=== PATIENT | male | born 1950 | race Caucasian/White ===

== ENCOUNTER 2018-05-07 13:34 | Emergency (ER) | payer OTHER ==
[2018-05-07 17:08] LABS: ADD MAN DIFF? NO
[2018-05-07 17:13] LABS: BASOPHILS % 0.2 % (0.0-2.0); HEMATOCRIT 41.4 % (42.0-52.0); HEMOGLOBIN 13.6 g/dl (14.0-18.0); LYMPHOCYTES # 0.7 10^3/ul (0.8-2.9); MEAN CORPUSCULAR HEMOGLOBIN 28.6 pg (29.0-33.0); MEAN CORPUSCULAR HGB CONC 32.9 g/dl (32.0-37.0); MEAN PLATELET VOLUME 9.8 fl (7.4-10.4); MONOCYTES % 7.3 % (0.0-11.0); NEUTROPHIL # 12.3 10^3/ul (1.6-7.5); NEUTROPHILS % 86.9 % (39.0-77.0); PLATELET COUNT 198 10^3/UL (140-415); RED BLOOD COUNT 4.76 10^6/ul (4.70-6.10); RED CELL DISTRIBUTION WIDTH 13.3 % (11.5-14.5)
[2018-05-07 17:13] LABS: WHITE BLOOD COUNT 14.1 10^3/ul (4.8-10.8)
[2018-05-07 17:28] LABS: ALANINE AMINOTRANSFERASE 41 IU/L (13-69); ALBUMIN 4.5 g/dl (3.3-4.9); ALBUMIN/GLOBULIN RATIO 1.21; ALKALINE PHOSPHATASE 101 IU/L (42-121); ANION GAP 15 (5-13); ASPARTATE AMINO TRANSFERASE 42 IU/L (15-46); BILIRUBIN,INDIRECT 1.2 mg/dl (0-1.1); BILIRUBIN,TOTAL 1.2 mg/dl (0.2-1.3); BLOOD UREA NITROGEN 23 mg/dl (7-20); CALCIUM 9.7 mg/dl (8.4-10.2); CARBON DIOXIDE 24 mmol/L (21-31); CHLORIDE 101 mmol/L (97-110); CREATININE 1.27 mg/dl (0.61-1.24); Estimated GFR 56 mL/min (>60); GLUCOSE 134 mg/dl (70-220); LIPASE 46 U/L (23-300); POTASSIUM 4.1 mmol/L (3.5-5.1); SODIUM 140 mmol/L (135-144); TOTAL PROTEIN 8.2 g/dl (6.1-8.1)
[2018-05-07 17:47] LABS: URINE PH (Dip) POC 5.5 (5.0-8.5)
[2018-05-07 17:47] LABS: URINE BLOOD (Dip) POC Trace-intact (NEGATIVE); URINE GLUCOSE (Dip) POC Negative (NEGATIVE); URINE KETONES (Dip) POC Trace (NEGATIVE); URINE LEUKOCYTE EST (Dip) POC Negative (NEGATIVE); URINE NITRITE (Dip) POC Negative (NEGATIVE); URINE TOTAL PROTEIN POC 2+ (NEGATIVE)
[2018-05-07] MEDS: SOD CHLORIDE 0.9% 500 ML IV (18:04)
== END 2018-05-07 18:37 | disposition home or self-care (01) ==
LOC: E/R 13:34
DX: M25.561 Pain in right knee (principal); M25.562 Pain in left knee; E86.0 Dehydration; D72.829 Elevated white blood cell count, unspecified; N18.9 Chronic kidney disease, unspecified; D64.9 Anemia, unspecified
CPT/HCPCS: 36415; 71045; 73562; 80053; 81003; 83690; 85025; 99284-25

== ENCOUNTER 2018-12-05 11:41 | Inpatient (IN) | payer OTHER ==
[2018-12-05 12:50] LABS: ADD MAN DIFF? NO
[2018-12-05 12:57] LABS: WHITE BLOOD COUNT 13.1 10^3/ul (4.8-10.8)
[2018-12-05 12:57] LABS: ABNORMAL IP MESSAGE 1; BASOPHIL # 0.1 10^3/ul (0.0-0.1); BASOPHILS % 0.6 % (0.0-2.0); HEMATOCRIT 38.4 % (42.0-52.0); HEMOGLOBIN 12.9 g/dl (14.0-18.0); LYMPHOCYTES # 1.5 10^3/ul (0.8-2.9); LYMPHOCYTES % 11.4 % (15.0-51.0); MEAN CORPUSCULAR HEMOGLOBIN 28.5 pg (29.0-33.0); MEAN CORPUSCULAR HGB CONC 33.6 g/dl (32.0-37.0); MEAN CORPUSCULAR VOLUME 84.8 fl (82.0-101.0); MEAN PLATELET VOLUME 9.9 fl (7.4-10.4); MONOCYTE # 1.7 10^3/ul (0.3-0.9); MONOCYTES % 13.2 % (0.0-11.0); NEUTROPHIL # 9.8 10^3/ul (1.6-7.5); NEUTROPHILS % 74.3 % (39.0-77.0); PLATELET COUNT 263 10^3/UL (140-415); POSITIVE DIFF @See below; RED BLOOD COUNT 4.53 10^6/ul (4.70-6.10); RED CELL DISTRIBUTION WIDTH 12.7 % (11.5-14.5)
[2018-12-05] MEDS: SODIUM CHLORIDE 0.9% 1L BAG IV* (13:02)
[2018-12-05] MEDS: CEFTRIAXONE 1 GM/50 ML (PMX) 50 ML IVPB (13:03)
[2018-12-05] MEDS: IBUPROFEN 600 MG TAB PO (13:10)
[2018-12-05 13:13] LABS: LACTIC ACID 2.9 mmol/L (0.5-2.0)
[2018-12-05 13:16] LABS: ALANINE AMINOTRANSFERASE 25 IU/L (13-69); ALBUMIN 4.4 g/dl (3.3-4.9); ALBUMIN/GLOBULIN RATIO 1.25; ALKALINE PHOSPHATASE 92 IU/L (42-121); ANION GAP 16 (5-13); ASPARTATE AMINO TRANSFERASE 49 IU/L (15-46); BILIRUBIN,INDIRECT 2.2 mg/dl (0-1.1); BILIRUBIN,TOTAL 2.2 mg/dl (0.2-1.3); BLOOD UREA NITROGEN 14 mg/dl (7-20); CALCIUM 9.4 mg/dl (8.4-10.2); CARBON DIOXIDE 23 mmol/L (21-31); CHLORIDE 96 mmol/L (97-110); CREATININE 1.23 mg/dl (0.61-1.24); Estimated GFR 59 mL/min (>60); GLUCOSE 128 mg/dl (70-220); INR 1.12; LIPASE 54 U/L (23-300); POTASSIUM 3.9 mmol/L (3.5-5.1); PROTIME 14.5 Sec (11.9-14.9); PT RATIO 1.1; SODIUM 135 mmol/L (135-144); TOTAL PROTEIN 7.9 g/dl (6.1-8.1)
[2018-12-05 13:17] LABS: PARTIAL THROMBOPLASTIN TIME 41.7 Sec (23.0-35.0)
[2018-12-05] MEDS: ONDANSETRON 4 MG INJ IV (13:18)
[2018-12-05 13:25] LABS: TROPONIN-I < 0.012 ng/ml (0.000-0.120)
[2018-12-05 13:52] LABS: ADD UMIC YES; UR ASCORBIC ACID NEGATIVE (NEGATIVE); UR BILIRUBIN (Dip) 1+ mg/dL (NEGATIVE); UR BLOOD (Dip) 1+ mg/dL (NEGATIVE); UR CLARITY SLIGHTLY CLOUDY (CLEAR); UR COLOR AMBER (YELLOW); UR GLUCOSE (Dip) NEGATIVE (NEGATIVE); UR KETONES (Dip) 1+ mg/dL (NEGATIVE); UR LEUKOCYTE ESTERASE (Dip) NEGATIVE Leu/ul (NEGATIVE); UR MUCUS MANY /HPF (NONE SEEN); UR NITRITE (Dip) NEGATIVE (NEGATIVE); UR RBC 3 /HPF (0-5); UR SPECIFIC GRAVITY (Dip) 1.021 (1.003-1.030); UR TOTAL PROTEIN (Dip) 1+ mg/dl (NEGATIVE); UR UROBILINOGEN (Dip) 2+ mg/dL (NEGATIVE); UR WBC 2 /HPF (0-5)
[2018-12-05 15:48] LABS: LACTIC ACID 1.1 mmol/L (0.5-2.0)
[2018-12-05] MEDS ORDERED: DOCUSATE SODIUM 100 MG CAP PO (16:00)
[2018-12-05] MEDS ORDERED: ONDANSETRON 4 MG INJ IV (16:00)
[2018-12-05] MEDS ORDERED: VANCOMYCIN IV PER PHARMACY XX (16:00)
[2018-12-05] MEDS ORDERED: MAGNESIUM HYDROXIDE 30ML CUP PO (16:00)
[2018-12-05] MEDS ORDERED: NACL 0.9% 3 ML SYG IV (16:00)
[2018-12-05] MEDS ORDERED: BISACODYL 10 MG SUPP PR (16:00)
[2018-12-05] MEDS: VANCOMYCIN HCL 1.25 GM in SOD CHLORIDE 0.9% 250 ML IVPB (16:34)
[2018-12-05] MEDS: ENOXAPARIN 40 MG/0.4 ML SYG SC (16:43)
[2018-12-05] MEDS: SOD CHLORIDE 0.9% 1,000 ML IV (16:43)
[2018-12-05] MEDS: CEFEPIME 1GM/50 ML (PMX) 50 ML IVPB ×2 (18:14→22:43)
[2018-12-05 21:22] LABS: LACTIC ACID 1.2 mmol/L (0.5-2.0)
[2018-12-05] MEDS: FAMOTIDINE 20 MG INJ IV (22:42)
[2018-12-06] MEDS: SOD CHLORIDE 0.9% 1,000 ML IV ×3 (05:30→17:14)
[2018-12-06] MEDS: VANCOMYCIN 750 MG (PMX) 250 ML IVPB ×2 (05:31→17:53)
[2018-12-06 06:43] LABS: ADD MAN DIFF? NO
[2018-12-06 06:46] LABS: WHITE BLOOD COUNT 9.4 10^3/ul (4.8-10.8)
[2018-12-06 06:46] LABS: BASOPHILS % 0.4 % (0.0-2.0); EOSINOPHILS % 0.2 % (0.0-7.0); HEMATOCRIT 37.3 % (42.0-52.0); HEMOGLOBIN 12.5 g/dl (14.0-18.0); LYMPHOCYTES # 0.6 10^3/ul (0.8-2.9); LYMPHOCYTES % 6.7 % (15.0-51.0); MEAN CORPUSCULAR HEMOGLOBIN 28.9 pg (29.0-33.0); MEAN CORPUSCULAR HGB CONC 33.5 g/dl (32.0-37.0); MEAN CORPUSCULAR VOLUME 86.1 fl (82.0-101.0); MEAN PLATELET VOLUME 10.1 fl (7.4-10.4); MONOCYTE # 0.9 10^3/ul (0.3-0.9); MONOCYTES % 9.4 % (0.0-11.0); NEUTROPHIL # 7.8 10^3/ul (1.6-7.5); NEUTROPHILS % 82.8 % (39.0-77.0); PLATELET COUNT 181 10^3/UL (140-415); RED BLOOD COUNT 4.33 10^6/ul (4.70-6.10); RED CELL DISTRIBUTION WIDTH 12.5 % (11.5-14.5)
[2018-12-06 07:13] LABS: URIC ACID 5.6 mg/dl (3.1-7.9)
[2018-12-06 07:19] LABS: ALANINE AMINOTRANSFERASE 19 IU/L (13-69); ALBUMIN 3.9 g/dl (3.3-4.9); ALBUMIN/GLOBULIN RATIO 1.18; ALKALINE PHOSPHATASE 84 IU/L (42-121); ANION GAP 11 (5-13); ASPARTATE AMINO TRANSFERASE 27 IU/L (15-46); BILIRUBIN,INDIRECT 1.2 mg/dl (0-1.1); BILIRUBIN,TOTAL 1.2 mg/dl (0.2-1.3); BLOOD UREA NITROGEN 10 mg/dl (7-20); CALCIUM 8.9 mg/dl (8.4-10.2); CARBON DIOXIDE 21 mmol/L (21-31); CHLORIDE 109 mmol/L (97-110); CREATININE 0.81 mg/dl (0.61-1.24); Estimated GFR > 60 mL/min (>60); GLUCOSE 95 mg/dl (70-220); MAGNESIUM 2.1 mg/dl (1.7-2.5); PHOSPHORUS 3.4 mg/dl (2.5-4.9); POTASSIUM 4.3 mmol/L (3.5-5.1); SODIUM 141 mmol/L (135-144); TOTAL PROTEIN 7.2 g/dl (6.1-8.1)
[2018-12-06] MEDS: CEFEPIME 1GM/50 ML (PMX) 50 ML IVPB ×2 (08:41→20:29)
[2018-12-06] MEDS: FAMOTIDINE 20 MG INJ IV ×2 (08:41→20:29)
[2018-12-06] MEDS: ENOXAPARIN 40 MG/0.4 ML SYG SC (08:41)
[2018-12-06] MEDS: ACETAMINOPHEN 325 MG TAB PO (20:32)
[2018-12-07 05:44] LABS: ADD MAN DIFF? NO
[2018-12-07 05:47] LABS: BASOPHIL # 0.1 10^3/ul (0.0-0.1); BASOPHILS % 0.5 % (0.0-2.0); EOSINOPHILS % 0.3 % (0.0-7.0); HEMATOCRIT 34.5 % (42.0-52.0); HEMOGLOBIN 11.6 g/dl (14.0-18.0); LYMPHOCYTES # 0.9 10^3/ul (0.8-2.9); LYMPHOCYTES % 9.1 % (15.0-51.0); MEAN CORPUSCULAR HEMOGLOBIN 28.8 pg (29.0-33.0); MEAN CORPUSCULAR HGB CONC 33.6 g/dl (32.0-37.0); MEAN CORPUSCULAR VOLUME 85.6 fl (82.0-101.0); MEAN PLATELET VOLUME 10.5 fl (7.4-10.4); MONOCYTES % 10.2 % (0.0-11.0); NEUTROPHIL # 8.1 10^3/ul (1.6-7.5); NEUTROPHILS % 79.6 % (39.0-77.0); PLATELET COUNT 202 10^3/UL (140-415); RED BLOOD COUNT 4.03 10^6/ul (4.70-6.10); RED CELL DISTRIBUTION WIDTH 12.4 % (11.5-14.5)
[2018-12-07 05:47] LABS: WHITE BLOOD COUNT 10.2 10^3/ul (4.8-10.8)
[2018-12-07 06:12] LABS: ANION GAP 11 (5-13); BLOOD UREA NITROGEN 10 mg/dl (7-20); CALCIUM 8.7 mg/dl (8.4-10.2); CARBON DIOXIDE 22 mmol/L (21-31); CHLORIDE 103 mmol/L (97-110); CREATININE 0.72 mg/dl (0.61-1.24); Estimated GFR > 60 mL/min (>60); GLUCOSE 92 mg/dl (70-220); POTASSIUM 3.8 mmol/L (3.5-5.1); SODIUM 136 mmol/L (135-144)
[2018-12-07 06:40] LABS: VANCOMYCIN,TROUGH 6.3 ug/ml (10.0-20.0)
[2018-12-07] MEDS: VANCOMYCIN 750 MG (PMX) 250 ML IVPB ×3 (06:45→22:09)
[2018-12-07 07:28] LABS: PHOSPHORUS 3.3 mg/dl (2.5-4.9)
[2018-12-07 07:28] LABS: MAGNESIUM 2.2 mg/dl (1.7-2.5)
[2018-12-07] MEDS: FAMOTIDINE 20 MG INJ IV (08:36)
[2018-12-07] MEDS: ENOXAPARIN 40 MG/0.4 ML SYG SC (08:41)
[2018-12-07] MEDS: ACETAMINOPHEN 325 MG TAB PO ×2 (08:45→20:26)
[2018-12-07] MEDS: CEFEPIME 1GM/50 ML (PMX) 50 ML IVPB ×2 (09:04→20:20)
[2018-12-07] MEDS: KETOROLAC 15 MG INJ IV (10:59)
[2018-12-07] MEDS: CLOTRIMAZOLE 1% 30 ML TOPICAL SOLN TOP ×2 (13:00→20:20)
[2018-12-07] MEDS: BISACODYL (EC) 5 MG TAB PO (14:36)
[2018-12-07 19:30] LABS: RHEUMATOID FACTOR NEGATIVE (NEGATIVE)
[2018-12-07] MEDS ORDERED: DIPHENHYDRAMINE 50 MG INJ IV (19:30)
[2018-12-07] MEDS: FAMOTIDINE 20 MG TAB PO (20:23)
[2018-12-08 05:18] LABS: ADD MAN DIFF? NO; HAAIG REFLEX REFLEX FILED
[2018-12-08 05:20] LABS: BASOPHIL # 0.1 10^3/ul (0.0-0.1); BASOPHILS % 0.7 % (0.0-2.0); EOSINOPHILS # 0.1 10^3/ul (0.0-0.5); HEMATOCRIT 31.2 % (42.0-52.0); HEMOGLOBIN 10.5 g/dl (14.0-18.0); LYMPHOCYTES # 1.2 10^3/ul (0.8-2.9); LYMPHOCYTES % 16.8 % (15.0-51.0); MEAN CORPUSCULAR HEMOGLOBIN 28.6 pg (29.0-33.0); MEAN CORPUSCULAR HGB CONC 33.7 g/dl (32.0-37.0); MEAN PLATELET VOLUME 10.2 fl (7.4-10.4); MONOCYTE # 0.6 10^3/ul (0.3-0.9); MONOCYTES % 9.1 % (0.0-11.0); NEUTROPHILS % 71.1 % (39.0-77.0); PLATELET COUNT 247 10^3/UL (140-415); RED BLOOD COUNT 3.67 10^6/ul (4.70-6.10); RED CELL DISTRIBUTION WIDTH 12.4 % (11.5-14.5)
[2018-12-08] MEDS: SOD CHLORIDE 0.9% 1,000 ML IV (05:44)
[2018-12-08] MEDS: VANCOMYCIN 750 MG (PMX) 250 ML IVPB ×3 (05:44→22:21)
[2018-12-08 06:22] LABS: ALPHA FETOPROTEIN 1.73 IU/L (0.00-7.21)
[2018-12-08 06:30] LABS: IRON 18 ug/dl (35-150)
[2018-12-08 06:33] LABS: PROCALCITONIN 1.71 ng/mL (0.00-0.10)
[2018-12-08 06:34] LABS: ALANINE AMINOTRANSFERASE 19 IU/L (13-69); ALBUMIN/GLOBULIN RATIO 1.03; ALKALINE PHOSPHATASE 140 IU/L (42-121); AMYLASE 50 U/L (11-123); ANION GAP 7 (5-13); ASPARTATE AMINO TRANSFERASE 25 IU/L (15-46); BILIRUBIN,INDIRECT 0.6 mg/dl (0-1.1); BILIRUBIN,TOTAL 0.6 mg/dl (0.2-1.3); BLOOD UREA NITROGEN 14 mg/dl (7-20); CALCIUM 8.8 mg/dl (8.4-10.2); CARBON DIOXIDE 24 mmol/L (21-31); CHLORIDE 109 mmol/L (97-110); CREATININE 0.75 mg/dl (0.61-1.24); Estimated GFR > 60 mL/min (>60); GLUCOSE 93 mg/dl (70-220); POTASSIUM 3.9 mmol/L (3.5-5.1); SODIUM 140 mmol/L (135-144); TOTAL PROTEIN 5.9 g/dl (6.1-8.1)
[2018-12-08 06:41] LABS: % IRON SATURATION 10 % SAT (22-52); TOTAL IRON BINDING CAPACITY 180 ug/dl (241-421)
[2018-12-08 07:06] LABS: HEPATITIS B SURFACE ANTIGEN NEGATIVE (NEGATIVE)
[2018-12-08 07:24] LABS: HEPATITIS B CORE ANTIBODY NEGATIVE (NEGATIVE); HEPATITIS C VIRAL ANTIBODY NEGATIVE (NEGATIVE)
[2018-12-08 07:30] LABS: ERYTHROCYTE SEDIMENTATION RATE 118 mm/Hr (0-20)
[2018-12-08] MEDS: FAMOTIDINE 20 MG TAB PO ×2 (08:33→20:20)
[2018-12-08] MEDS: CEFEPIME 1GM/50 ML (PMX) 50 ML IVPB ×2 (08:33→20:21)
[2018-12-08] MEDS: ENOXAPARIN 40 MG/0.4 ML SYG SC (08:40)
[2018-12-08] MEDS: CLOTRIMAZOLE 1% 30 ML TOPICAL SOLN TOP ×2 (09:00→20:20)
[2018-12-08 09:41] LABS: PROSTATE SPECIFIC ANTIGEN < 0.1 ng/ml (0.0-4.0)
[2018-12-08 10:16] LABS: C-REACTIVE PROTEIN 24.2 mg/dl (0.0-0.9)
[2018-12-08 10:29] LABS: CANCER ANTIGEN 125 5.8 U/ml (0.0-35.0)
[2018-12-08 10:33] LABS: CANCER ANTIGEN 19-9 3.8 U/ml (0.0-37.0)
[2018-12-08 13:31] LABS: VANCOMYCIN,TROUGH 13.7 ug/ml (10.0-20.0)
[2018-12-08] MEDS: SOD FERRIC GLUC COMPLX 125 MG in SOD CHLORIDE 0.9% 100 ML IVPB (14:57)
[2018-12-08 19:15] LABS: HIV 1&2 ANTIBODY NEGATIVE (NEGATIVE)
[2018-12-08] MEDS: ACETAMINOPHEN 325 MG TAB PO (20:21)
[2018-12-09] MEDS: VANCOMYCIN 750 MG (PMX) 250 ML IVPB ×3 (05:33→21:12)
[2018-12-09 05:50] LABS: ADD MAN DIFF? NO
[2018-12-09 06:00] LABS: BASOPHILS % 0.7 % (0.0-2.0); EOSINOPHILS # 0.3 10^3/ul (0.0-0.5); EOSINOPHILS % 4.5 % (0.0-7.0); HEMATOCRIT 30.3 % (42.0-52.0); HEMOGLOBIN 10.3 g/dl (14.0-18.0); LYMPHOCYTES # 1.1 10^3/ul (0.8-2.9); LYMPHOCYTES % 20.5 % (15.0-51.0); MEAN CORPUSCULAR HEMOGLOBIN 28.5 pg (29.0-33.0); MEAN CORPUSCULAR VOLUME 83.9 fl (82.0-101.0); MONOCYTE # 0.5 10^3/ul (0.3-0.9); MONOCYTES % 9.5 % (0.0-11.0); NEUTROPHIL # 3.6 10^3/ul (1.6-7.5); NEUTROPHILS % 64.4 % (39.0-77.0); PLATELET COUNT 269 10^3/UL (140-415); RED BLOOD COUNT 3.61 10^6/ul (4.70-6.10); RED CELL DISTRIBUTION WIDTH 12.2 % (11.5-14.5)
[2018-12-09 06:00] LABS: WHITE BLOOD COUNT 5.6 10^3/ul (4.8-10.8)
[2018-12-09 06:31] LABS: ALANINE AMINOTRANSFERASE 29 IU/L (13-69); ALBUMIN 3.2 g/dl (3.3-4.9); ALKALINE PHOSPHATASE 172 IU/L (42-121); ASPARTATE AMINO TRANSFERASE 37 IU/L (15-46); BILIRUBIN,INDIRECT 0.5 mg/dl (0-1.1); BILIRUBIN,TOTAL 0.5 mg/dl (0.2-1.3); TOTAL PROTEIN 6.5 g/dl (6.1-8.1)
[2018-12-09 06:46] LABS: LIPASE 149 U/L (23-300)
[2018-12-09 06:48] LABS: ANION GAP 8 (5-13); BLOOD UREA NITROGEN 7 mg/dl (7-20); CALCIUM 8.5 mg/dl (8.4-10.2); CARBON DIOXIDE 25 mmol/L (21-31); CHLORIDE 105 mmol/L (97-110); CREATININE 0.61 mg/dl (0.61-1.24); Estimated GFR > 60 mL/min (>60); GLUCOSE 91 mg/dl (70-220); POTASSIUM 3.4 mmol/L (3.5-5.1); SODIUM 138 mmol/L (135-144)
[2018-12-09] MEDS: CEFEPIME 1GM/50 ML (PMX) 50 ML IVPB ×2 (08:58→20:25)
[2018-12-09] MEDS: CLOTRIMAZOLE 1% 30 ML TOPICAL SOLN TOP ×2 (08:59→20:32)
[2018-12-09] MEDS: FAMOTIDINE 20 MG TAB PO ×2 (08:59→20:26)
[2018-12-09] MEDS: ENOXAPARIN 40 MG/0.4 ML SYG SC (09:00)
[2018-12-09] MEDS: POTASSIUM CHLORIDE 20 MEQ POWDER FOR ORAL SOLN PO (13:29)
[2018-12-09] MEDS: SOD FERRIC GLUC COMPLX 125 MG in SOD CHLORIDE 0.9% 100 ML IVPB (13:31)
[2018-12-09] MEDS: ACETAMINOPHEN 325 MG TAB PO (20:26)
[2018-12-10] MEDS: VANCOMYCIN 750 MG (PMX) 250 ML IVPB ×3 (06:02→21:57)
[2018-12-10 06:06] LABS: ADD MAN DIFF? NO
[2018-12-10 06:11] LABS: WHITE BLOOD COUNT 7.1 10^3/ul (4.8-10.8)
[2018-12-10 06:11] LABS: BASOPHIL # 0.1 10^3/ul (0.0-0.1); BASOPHILS % 1.1 % (0.0-2.0); EOSINOPHILS # 0.3 10^3/ul (0.0-0.5); EOSINOPHILS % 3.7 % (0.0-7.0); HEMOGLOBIN 11.2 g/dl (14.0-18.0); LYMPHOCYTES # 1.4 10^3/ul (0.8-2.9); LYMPHOCYTES % 20.1 % (15.0-51.0); MEAN CORPUSCULAR HGB CONC 33.9 g/dl (32.0-37.0); MEAN CORPUSCULAR VOLUME 85.5 fl (82.0-101.0); MEAN PLATELET VOLUME 9.7 fl (7.4-10.4); MONOCYTE # 0.7 10^3/ul (0.3-0.9); MONOCYTES % 10.2 % (0.0-11.0); NEUTROPHIL # 4.6 10^3/ul (1.6-7.5); NEUTROPHILS % 64.3 % (39.0-77.0); PLATELET COUNT 327 10^3/UL (140-415); RED BLOOD COUNT 3.86 10^6/ul (4.70-6.10); RED CELL DISTRIBUTION WIDTH 12.1 % (11.5-14.5)
[2018-12-10 06:43] LABS: ANION GAP 10 (5-13); BLOOD UREA NITROGEN 8 mg/dl (7-20); CALCIUM 9.1 mg/dl (8.4-10.2); CARBON DIOXIDE 27 mmol/L (21-31); CHLORIDE 98 mmol/L (97-110); CREATININE 0.65 mg/dl (0.61-1.24); Estimated GFR > 60 mL/min (>60); GLUCOSE 98 mg/dl (70-220); SODIUM 135 mmol/L (135-144)
[2018-12-10] MEDS: CEFEPIME 1GM/50 ML (PMX) 50 ML IVPB ×2 (09:09→20:34)
[2018-12-10] MEDS: FAMOTIDINE 20 MG TAB PO ×2 (09:09→20:33)
[2018-12-10] MEDS: CLOTRIMAZOLE 1% 30 ML TOPICAL SOLN TOP ×2 (09:09→20:34)
[2018-12-10] MEDS: ENOXAPARIN 40 MG/0.4 ML SYG SC (09:12)
[2018-12-10] MEDS: IBUPROFEN 600 MG TAB PO (11:34)
[2018-12-10] MEDS: SOD FERRIC GLUC COMPLX 125 MG in SOD CHLORIDE 0.9% 100 ML IVPB (12:40)
[2018-12-10 14:27] LABS: ANA SCREEN NEGATIVE (NEGATIVE)
[2018-12-11] MEDS: IBUPROFEN 600 MG TAB PO ×2 (03:48→16:36)
[2018-12-11 05:54] LABS: ADD MAN DIFF? NO
[2018-12-11 05:56] LABS: WHITE BLOOD COUNT 6.4 10^3/ul (4.8-10.8)
[2018-12-11 05:56] LABS: BASOPHIL # 0.1 10^3/ul (0.0-0.1); BASOPHILS % 0.9 % (0.0-2.0); EOSINOPHILS # 0.3 10^3/ul (0.0-0.5); EOSINOPHILS % 4.7 % (0.0-7.0); HEMATOCRIT 29.1 % (42.0-52.0); HEMOGLOBIN 10.1 g/dl (14.0-18.0); LYMPHOCYTES % 15.8 % (15.0-51.0); MEAN CORPUSCULAR HGB CONC 34.7 g/dl (32.0-37.0); MEAN CORPUSCULAR VOLUME 83.6 fl (82.0-101.0); MEAN PLATELET VOLUME 9.7 fl (7.4-10.4); MONOCYTE # 0.8 10^3/ul (0.3-0.9); MONOCYTES % 12.1 % (0.0-11.0); NEUTROPHIL # 4.2 10^3/ul (1.6-7.5); NEUTROPHILS % 65.7 % (39.0-77.0); PLATELET COUNT 307 10^3/UL (140-415); RED BLOOD COUNT 3.48 10^6/ul (4.70-6.10); RED CELL DISTRIBUTION WIDTH 12.1 % (11.5-14.5)
[2018-12-11 06:20] LABS: ANION GAP 9 (5-13); BLOOD UREA NITROGEN 10 mg/dl (7-20); CALCIUM 8.8 mg/dl (8.4-10.2); CARBON DIOXIDE 26 mmol/L (21-31); CHLORIDE 98 mmol/L (97-110); CREATININE 0.65 mg/dl (0.61-1.24); Estimated GFR > 60 mL/min (>60); GLUCOSE 89 mg/dl (70-220); POTASSIUM 3.7 mmol/L (3.5-5.1); SODIUM 133 mmol/L (135-144)
[2018-12-11 06:26] LABS: URIC ACID 3.1 mg/dl (3.1-7.9)
[2018-12-11 06:28] LABS: PHOSPHORUS 3.9 mg/dl (2.5-4.9)
[2018-12-11 06:28] LABS: MAGNESIUM 1.9 mg/dl (1.7-2.5)
[2018-12-11 06:32] LABS: VANCOMYCIN,TROUGH 15.6 ug/ml (10.0-20.0)
[2018-12-11 06:45] LABS: C-REACTIVE PROTEIN 20.3 mg/dl (0.0-0.9)
[2018-12-11] MEDS: VANCOMYCIN 750 MG (PMX) 250 ML IVPB (06:50)
[2018-12-11 08:02] LABS: ERYTHROCYTE SEDIMENTATION RATE 108 mm/Hr (0-20)
[2018-12-11] MEDS: ENOXAPARIN 40 MG/0.4 ML SYG SC (08:57)
[2018-12-11] MEDS: FAMOTIDINE 20 MG TAB PO ×2 (08:58→21:15)
[2018-12-11] MEDS: CLOTRIMAZOLE 1% 30 ML TOPICAL SOLN TOP ×2 (08:59→21:15)
[2018-12-11] MEDS: CEFEPIME 1GM/50 ML (PMX) 50 ML IVPB (08:59)
[2018-12-11 12:07] LABS: CYTOMEGALOVIRUS ANTIBODY (IGM) <30.00 AU/mL
[2018-12-11] MEDS: SOD FERRIC GLUC COMPLX 125 MG in SOD CHLORIDE 0.9% 100 ML IVPB (13:00)
[2018-12-11] MEDS: VANCOMYCIN 500 MG (PMX) 100 ML IVPB (14:08)
[2018-12-11 19:11] LABS: EBV VIRAL CAPSID AG AB (IGM) <36.00 U/mL
[2018-12-11 21:36] LABS: CANCER ANTIGEN 15-3 2 U/mL (<32)
[2018-12-12] MEDS: IBUPROFEN 600 MG TAB PO ×3 (02:47→21:12)
[2018-12-12 04:36] LABS: PROTEIN, TOTAL 5.8 g/dL (6.1-8.1)
[2018-12-12 05:47] LABS: ADD MAN DIFF? NO
[2018-12-12 05:53] LABS: BASOPHIL # 0.1 10^3/ul (0.0-0.1); BASOPHILS % 1.3 % (0.0-2.0); EOSINOPHILS # 0.2 10^3/ul (0.0-0.5); EOSINOPHILS % 3.9 % (0.0-7.0); HEMOGLOBIN 9.9 g/dl (14.0-18.0); LYMPHOCYTES # 1.3 10^3/ul (0.8-2.9); LYMPHOCYTES % 21.1 % (15.0-51.0); MEAN CORPUSCULAR HEMOGLOBIN 28.5 pg (29.0-33.0); MEAN CORPUSCULAR HGB CONC 34.1 g/dl (32.0-37.0); MEAN CORPUSCULAR VOLUME 83.6 fl (82.0-101.0); MEAN PLATELET VOLUME 9.5 fl (7.4-10.4); MONOCYTE # 0.7 10^3/ul (0.3-0.9); NEUTROPHIL # 3.8 10^3/ul (1.6-7.5); NEUTROPHILS % 61.7 % (39.0-77.0); PLATELET COUNT 330 10^3/UL (140-415); RED BLOOD COUNT 3.47 10^6/ul (4.70-6.10); RED CELL DISTRIBUTION WIDTH 12.2 % (11.5-14.5)
[2018-12-12 05:53] LABS: WHITE BLOOD COUNT 6.2 10^3/ul (4.8-10.8)
[2018-12-12 06:16] LABS: ALANINE AMINOTRANSFERASE 18 IU/L (13-69); ALBUMIN 3.4 g/dl (3.3-4.9); ALBUMIN/GLOBULIN RATIO 1.03; ALKALINE PHOSPHATASE 157 IU/L (42-121); ANION GAP 11 (5-13); ASPARTATE AMINO TRANSFERASE 26 IU/L (15-46); BILIRUBIN,INDIRECT 0.6 mg/dl (0-1.1); BILIRUBIN,TOTAL 0.6 mg/dl (0.2-1.3); BLOOD UREA NITROGEN 11 mg/dl (7-20); CALCIUM 8.7 mg/dl (8.4-10.2); CARBON DIOXIDE 27 mmol/L (21-31); CHLORIDE 96 mmol/L (97-110); CREATININE 0.68 mg/dl (0.61-1.24); Estimated GFR > 60 mL/min (>60); GLUCOSE 89 mg/dl (70-220); POTASSIUM 3.9 mmol/L (3.5-5.1); SODIUM 134 mmol/L (135-144); TOTAL PROTEIN 6.7 g/dl (6.1-8.1)
[2018-12-12 06:20] LABS: PHOSPHORUS 3.9 mg/dl (2.5-4.9)
[2018-12-12] MEDS: FAMOTIDINE 20 MG TAB PO ×2 (08:17→21:11)
[2018-12-12] MEDS: CLOTRIMAZOLE 1% 30 ML TOPICAL SOLN TOP ×2 (08:17→21:12)
[2018-12-12] MEDS: ENOXAPARIN 40 MG/0.4 ML SYG SC (08:19)
[2018-12-12 15:41] LABS: MYELOPEROXIDASE ANTIBODY <1.0 AI; PROTEINASE-3 ANTIBODY <1.0 AI
[2018-12-12 16:31] LABS: WEST NILE VIRUS ANTIBODY (IGG) <1.30 index; WEST NILE VIRUS ANTIBODY (IGM) <0.90 index
[2018-12-12 18:57] LABS: ALBUMIN 2.8 g/dL (3.8-4.8); ALPHA-1-GLOBULINS 0.5 g/dL (0.2-0.3); ALPHA-2-GLOBULINS 0.9 g/dL (0.5-0.9); BETA 2 GLOBULINS 0.3 g/dL (0.2-0.5); BETA GLOBULINS 0.4 g/dL (0.4-0.6); GAMMA GLOBULINS 0.9 g/dL (0.8-1.7)
[2018-12-13 06:23] LABS: WHITE BLOOD COUNT 5.3 10^3/ul (4.8-10.8)
[2018-12-13 06:23] LABS: ADD MAN DIFF? NO; BASOPHIL # 0.1 10^3/ul (0.0-0.1); BASOPHILS % 1.1 % (0.0-2.0); EOSINOPHILS # 0.3 10^3/ul (0.0-0.5); EOSINOPHILS % 5.9 % (0.0-7.0); HEMATOCRIT 29.6 % (42.0-52.0); HEMOGLOBIN 10.2 g/dl (14.0-18.0); LYMPHOCYTES # 1.5 10^3/ul (0.8-2.9); MEAN CORPUSCULAR HEMOGLOBIN 28.7 pg (29.0-33.0); MEAN CORPUSCULAR HGB CONC 34.5 g/dl (32.0-37.0); MEAN CORPUSCULAR VOLUME 83.4 fl (82.0-101.0); MEAN PLATELET VOLUME 9.6 fl (7.4-10.4); MONOCYTE # 0.6 10^3/ul (0.3-0.9); MONOCYTES % 10.8 % (0.0-11.0); NEUTROPHIL # 2.7 10^3/ul (1.6-7.5); NEUTROPHILS % 51.1 % (39.0-77.0); PLATELET COUNT 356 10^3/UL (140-415); RED BLOOD COUNT 3.55 10^6/ul (4.70-6.10)
[2018-12-13 06:51] LABS: ANION GAP 9 (5-13); BLOOD UREA NITROGEN 10 mg/dl (7-20); CALCIUM 8.8 mg/dl (8.4-10.2); CARBON DIOXIDE 27 mmol/L (21-31); CHLORIDE 94 mmol/L (97-110); CREATININE 0.69 mg/dl (0.61-1.24); Estimated GFR > 60 mL/min (>60); GLUCOSE 89 mg/dl (70-220); POTASSIUM 3.9 mmol/L (3.5-5.1); SODIUM 130 mmol/L (135-144)
[2018-12-13 06:53] LABS: PHOSPHORUS 3.8 mg/dl (2.5-4.9)
[2018-12-13 06:53] LABS: MAGNESIUM 2.1 mg/dl (1.7-2.5)
[2018-12-13 07:17] LABS: ANCA SCREEN NEGATIVE (NEGATIVE)
[2018-12-13] MEDS: CLOTRIMAZOLE 1% 30 ML TOPICAL SOLN TOP ×2 (09:13→20:19)
[2018-12-13] MEDS: FAMOTIDINE 20 MG TAB PO ×2 (09:13→20:19)
[2018-12-13] MEDS: ENOXAPARIN 40 MG/0.4 ML SYG SC (09:16)
[2018-12-13] MEDS: IBUPROFEN 600 MG TAB PO ×2 (09:17→20:19)
[2018-12-14] MEDS: FAMOTIDINE 20 MG TAB PO (08:24)
[2018-12-14] MEDS: ENOXAPARIN 40 MG/0.4 ML SYG SC (08:25)
[2018-12-14] MEDS: CLOTRIMAZOLE 1% 30 ML TOPICAL SOLN TOP (08:28)
== END 2018-12-14 15:05 | disposition home health service (06) | DRG 872 ==
LOC: E/R 11:41 → 2NE 12-06 15:53 → TEL 14:30
PROVIDERS: Internal Medicine
DX: A41.9 Sepsis, unspecified organism (principal); E87.2 Acidosis; N28.1 Cyst of kidney, acquired; I95.1 Orthostatic hypotension; D50.9 Iron deficiency anemia, unspecified; B35.1 Tinea unguium; M19.90 Unspecified osteoarthritis, unspecified site; M24.561 Contracture, right knee; L03.031 Cellulitis of right toe; E80.6 Other disorders of bilirubin metabolism; J20.9 Acute bronchitis, unspecified; R42 Dizziness and giddiness; M25.562 Pain in left knee; M54.5 Low back pain
CPT/HCPCS: 36415; 70220; 71045; 72114; 72146; 72148; 73100; 73560; 73620; 74176; 78806; 80048; 80053; 80076; 80202; 81001; 82105; 82150; 83015; 83540; 83605; 83690; 83735; 84100; 84145; 84153; 84154; 84155; 84165; 84484; 84560; 85025; 85610; 85651; 85730; 86021; 86038; 86140; 86300; 86301; 86304; 86308; 86320; 86430; 86644; 86658; 86664; 86703; 86704; 86709; 86788; 86789; 86803; 87040-91; 87077; 87086; 87340; 87400; 87536; 93005; 93971; 96361; 96365; 96375; 97110; 97162; 97530; 99285-25